=== PATIENT | male | born 1940 | race Caucasian/White ===

== ENCOUNTER → 2018-01-17 | Outpatient (CLI) | payer OTHER, MEDICAID | LOC: BRMIMAGING 14:50 | PROVIDERS: ATTEND Physician Assistant Medical | DX: M11.242 Other chondrocalcinosis, left hand (principal); M11.241 Other chondrocalcinosis, right hand; M19.042 Primary osteoarthritis, left hand; M19.041 Primary osteoarthritis, right hand | CPT/HCPCS: 73130-PO ==

== ENCOUNTER → 2019-01-04 | Outpatient (CLI) | payer OTHER | LOC: CIMAGING 14:51 | PROVIDERS: ATTEND Nurse Practitioner Family | DX: M25.551 Pain in right hip (principal); G89.29 Other chronic pain | CPT/HCPCS: 72100-PO; 73502-PO ==